=== PATIENT | male | born 2000 | race American Indian/Alaskan Native ===

== ENCOUNTER 2020-05-11 21:08 | Emergency (ER) | payer SELFPAY ==
[2020-05-11] MEDS ORDERED: IBUPROFEN 600 MG TAB PO ONE (21:33)
[2020-05-11] MEDS ORDERED: LIDOCAINE-MPF (1%) 10 MG/1 ML VIAL 5 ML INFILTRATI ONE (21:33)
[2020-05-11] MEDS ORDERED: PHENAZOPYRIDINE 200 MG TAB PO ONE (21:33)
[2020-05-11] MEDS ORDERED: ACETAMINOPHEN 500 MG TAB PO ONE (21:33)
[2020-05-11] MEDS ORDERED: ONDANSETRON 4 MG ODT TAB PO ONE (21:33)
[2020-05-12 00:18] LABS: Bilirubin,Urine NEG (Negative); Blood,Urine SM (Negative); Color,Urine Yellow (Yellow); Mucus,Urine FEW /HPF; Urobilinogen,Urine < 2.0 mg/dL (<2.0)
--- NOTE | 2020-05-12 00:20 | Emergency Department Report ---
ED Male HPI - General Chief complaint: Fever Stated complaint: HEADACHE SORE THROAT BODY WEAKNESS Source: patient Mode of arrival: Ambulatory Limitations: No Limitations - History of Present Illness Initial comments: Patient is a 20-year-old -[place] male with no past medical history who presents to the ED with acute onset persistent dysuria, penile discharge, penile pain for the last 1 week after having unprotected sexual intercourse with his female partner. Patient states that he was initially evaluated by another physician whom he only saw virtually and who prescribed for him doxycycline and 2 g of azithromycin. Patient states that he took 2 g of azithromycin at once as was instructed and thereafter developed acute onset nausea and vomiting and sore throat. Patient states that in the last 12 hours his pain and discharge have worsened and he also has chills and fever. Patient denies dizziness, syncope, shortness of breath, cough, swollen lips or tongue, testicular pain, abdominal pain, diarrhea, dizziness, syncope or chest pain. MD Complaint: penile discharge, dysuria, other (sore throat; nausea and vomiting) -: Sudden, week(s) (1) Location: penis Radiation: none Severity: severe Severity scale (0 -10): 7 Quality: burning, sharp Consistency: constant Improves with: none Worsens with: urination new medication denies other symptoms, discharge, dysuria, fever. denies: swelling, mass, rash, urinary retention, blood in urine, nausea/vomiting, incontinence, other - Related Data Sexually active: Yes Previous Rx's Medication Instructions Recorded Last Taken Type Ibuprofen [Motrin] 600 mg PO Q8H PRN #24 tablet 05/12/20 Unknown Rx Ondansetron [Zofran Odt] 4 mg PO Q6HR PRN #20 tab.rapdis 05/12/20 Unknown Rx Phenazopyridine [Pyridium] 200 mg PO Q8H #15 tab 05/12/20 Unknown Rx cephALEXin [Keflex] 500 mg PO Q8HR #30 cap 05/12/20 Unknown Rx Allergies Allergy/AdvReac Type Severity Reaction Status Date / Time No Known Allergies Allergy Verified 05/11/20 21:24 ED Review of Systems ROS: Stated complaint: HEADACHE SORE THROAT BODY WEAKNESS Other details as noted in HPI Constitutional: denies: chills, fever Eyes: denies: eye pain, eye discharge, vision change ENT: throat pain. denies: ear pain Respiratory: denies: cough, shortness of breath, wheezing Cardiovascular: denies: chest pain, palpitations Endocrine: no symptoms reported Gastrointestinal: denies: abdominal pain, nausea, diarrhea Genitourinary: urgency, dysuria, frequency, discharge. denies: testicular pain, testicular mass Musculoskeletal: arthralgia, myalgia. denies: back pain, joint swelling Skin: denies: rash, lesions Neurological: denies: headache, weakness, paresthesias Psychiatric: denies: anxiety, depression Hematological/Lymphatic: denies: easy bleeding, easy bruising ED Past Medical Hx - Past Medical History Previous Medical History?: No - Surgical History Past Surgical History?: No - Social History Smoking Status: Current Some Day Smoker Substance Use Type: None - Medications Home Medications: Home Medications Medication Instructions Recorded Confirmed Last Taken Type Ibuprofen [Motrin] 600 mg PO Q8H PRN #24 tablet 05/12/20 Unknown Rx Ondansetron [Zofran Odt] 4 mg PO Q6HR PRN #20 tab.rapdis 05/12/20 Unknown Rx Phenazopyridine [Pyridium] 200 mg PO Q8H #15 tab 05/12/20 Unknown Rx cephALEXin [Keflex] 500 mg PO Q8HR #30 cap 05/12/20 Unknown Rx ED Physical Exam - General Limitations: No Limitations General appearance: alert, in no apparent distress - Head Head exam: Present: atraumatic, normocephalic, normal inspection - Eye Eye exam: Present: normal appearance, PERRL, EOMI Pupils: Present: normal accommodation - ENT ENT exam: Present: normal exam, normal orophraynx, mucous membranes moist, TM's normal bilaterally, normal external ear exam - Neck Neck exam: Present: normal inspection, full ROM - Respiratory Respiratory exam: Present: normal lung sounds bilaterally. Absent: respiratory distress, wheezes, rales, rhonchi, stridor, chest wall tenderness, decreased breath sounds, prolonged expiratory - Cardiovascular Cardiovascular Exam: Present: normal rhythm, tachycardia, normal heart sounds. Absent: systolic murmur, diastolic murmur, rubs, gallop - GI/Abdominal GI/Abdominal exam: Present: soft, normal bowel sounds. Absent: tenderness, guarding, rebound, rigid, hyperactive bowel sounds, hypoactive bowel sounds, organomegaly, bruit - External exam: Present: other (Genital exam deferred, per patient request) - Extremities Exam Extremities exam: Present: normal inspection, full ROM, normal capillary refill - Back Exam Back exam: Present: normal inspection, full ROM. Absent: tenderness, CVA tenderness (L), muscle spasm, paraspinal tenderness - Neurological Exam Neurological exam: Present: alert, oriented X3, CN II-XII intact, normal gait, reflexes normal - Psychiatric Psychiatric exam: Present: normal affect, normal mood - Skin Skin exam: Present: warm, dry, intact, normal color. Absent: rash ED Course Vital Signs 05/11/20 05/11/20 05/12/20 21:18 23:59 01:25 Temperature 101.0 F H 99.3 F 98.0 F Pulse Rate 108 H 77 Respiratory 16 16 Rate Blood Pressure 152/78 123/67 O2 Sat by Pulse 98 99 Oximetry ED Medical Decision Making - Medical Decision Making This is a 20-year-old -[place] male with no past medical history who presents to the ED with acute onset persistent dysuria, penile discharge, penile pain for the last 1 week after having unprotected sexual intercourse with his female partner. Patient states that he was initially evaluated by another physician whom he only saw virtually and who prescribed for him doxycycline and 2 g of azithromycin. Patient states that he took 2 g of azithromycin at once as was instructed and thereafter developed acute onset nausea and vomiting and sore throat. Patient states that in the last 12 hours his pain and discharge have worsened and he also has chills and fever. In the ED, patient is alert and oriented x3 and is not in distress but tachycardic and febrile in triage. Patient was treated for fever and also given Rocephin 1 g intramuscular injection empirically for gonorrhea. Patient had already taken 2 g of azithromycin prior to arrival in the ED and was therefore not treated for the same. Urinalysis showed significant urinary tract infection consistent with gonorrhea and chlamydia infection. Patient will discharge home on medications and advised to follow-up with [facility] department for further evaluation and STD testing including HIV and syphilis. Patient was counseled on the importance of observing safe sexual practices. Patient was also advised to have his sexual partner treated for the same. Patient is advised return to the ED immediately if symptoms get worse. - Differential Diagnosis Gonorrhea; Urethritis; STD; UTI; Pharyngitis; Chlamydia Critical care attestation.: If time is entered above; I have spent that time in minutes in the direct care of this critically ill patient, excluding procedure time. ED Disposition Clinical Impression: Urethritis, nonspecific, STD (sexually transmitted disease), Acute urinary tract infection Disposition: TO HOME OR SELFCARE Is pt being admited?: No Does the pt Need Aspirin: No Condition: Stable Instructions: Antibiotic Medicine, Adult, [id number], Chlamydia, Male, Urinary Tract Infection, Adult, [id number], Urethritis, Adult, Gonorrhea Additional Instructions: Take medications with food, drink plenty of fluids and follow-up with the [facility] for further STD testing including HIV and syphilis. Return to the ED immediately if symptoms get worse. Prescriptions: cephALEXin [Keflex] 500 mg PO Q8HR #30 cap Ibuprofen [Motrin] 600 mg PO Q8H PRN #24 tablet PRN Reason: Pain Phenazopyridine [Pyridium] 200 mg PO Q8H #15 tab Ondansetron [Zofran Odt] 4 mg PO Q6HR PRN #20 tab.rapdis PRN Reason: Nausea Referrals: [facility] [Outside] - 3-5 Days Forms: STI Treatment and Prevention Time of Disposition: 00:20 Print Language: IRISH
[2020-05-12 01:28] VITALS: BP 123/67
== END 2020-05-12 01:28 | disposition home or self-care (01) ==
LOC: ED 21:08
DX: R36.9 Urethral discharge, unspecified (principal); N34.2 Other urethritis; A64 Unspecified sexually transmitted disease; F17.200 Nicotine dependence, unspecified, uncomplicated; Z79.899 Other long term (current) drug therapy
CPT/HCPCS: 81001; 87086; 87591; 96372; 99283; J0696; Q0162